=== PATIENT | male | born 1940 | race Caucasian/White ===

== ENCOUNTER 2024-11-29 09:52 | Emergency (ER) | payer OTHER, MEDICARE ==
[2024-11-29 10:09] VITALS: RESP 18; BMI 34.9
[2024-11-29] MEDS ORDERED: LIDOCAINE 4% PATCH TP ONE (11:16)
[2024-11-29] MEDS ORDERED: ACETAMINOPHEN 325 MG TABLET (FP) ONE (11:16)
[2024-11-29] MEDS: LIDOCAINE 4% PATCH TP ONE (11:22)
[2024-11-29] MEDS: ACETAMINOPHEN 500 MG TABLET (FP) PO ONE (11:22)
[2024-11-29 11:47] LABS: BASO % 0.9 % (0-2.0); EOS % 1.1 % (0-4.5); HEMATOCRIT 41.9 % (35.4-49); HEMOGLOBIN 14.2 GM/dL (11.7-16.9); LYMPH % 21.1 % (8-40); MCH 30.7 pg (25.7-33.7); MCHC 33.8 g/dl (32.0-35.9); MEAN CELL VOLUME 90.8 fl (80-96); NEUT % 61.9 % (42.8-82.8); PLATELET COUNT 184 10^3/uL (134-434); RBC 4.62 M/mm3 (4.00-5.60); RDW 13.5 % (11.9-15.9); WHITE BLOOD COUNT 5.2 K/mm3 (4.0-10.0)
[2024-11-29 12:12] LABS: POTASSIUM 4.4 mmol/L (3.5-5.1)
[2024-11-29 12:14] LABS: ALBUMIN 3.5 g/dl (3.4-5.0); CALCIUM 9.2 mg/dL (8.5-10.1)
[2024-11-29 12:15] LABS: BLOOD UREA NITROGEN 17.3 mg/dL (7-18)
[2024-11-29 12:18] LABS: CREATININE 0.9 mg/dL (0.55-1.3)
[2024-11-29 12:19] LABS: BILIRUBIN,TOTAL 0.4 mg/dL (0.2-1)
[2024-11-29 13:38] VITALS: BP 144/84; PULSE 75; TEMP 98
[2024-11-29] MEDS ORDERED: LIDOCAINE PATCH REMOVAL MC SCH (22:00)
== END 2024-11-29 13:38 | disposition home or self-care (01) ==
LOC: JER 09:52
DX: M54.42 Lumbago with sciatica, left side (principal); G89.29 Other chronic pain
CPT/HCPCS: 36415; 72100-TC-FY; 73521-TC-FY; 80053; 85025; 93005; 93010; 99285-25